=== PATIENT | male | born 1985 | race Caucasian/White ===

== ENCOUNTER 2020-05-28 16:29 | Emergency (ER) | payer MEDICARE, MEDICAID ==
[~2020-05-28] VITALS: Ht 185.4 cm; Wt 104.3 kg
[2020-05-28] MEDS ORDERED: XANAX 0.5 MG0.5 M1 PO (16:34)
[2020-05-28] MEDS ORDERED: LATUDA40 MG PO (16:35)
[2020-05-28 16:50] LABS: ABSOLUTE EOSINOPHILS 0.3 thou/uL (0.0-0.7); ABSOLUTE LYMPHOCYTES 2.3 thou/uL (0.8-5.3); ABSOLUTE MONOCYTES 0.5 thou/uL (0.0-1.2); ABSOLUTE NEUTROPHILS 5.9 thou/uL (1.6-8.1); BASOPHILS 0.5 %; EOSINOPHILS 2.9 %; HEMATOCRIT 38.9 % (42.0-52.0); HEMOGLOBIN 13.4 gm/dL (14.0-18.0); LYMPHOCYTES 25.4 %; MCH 32.5 pg (26.0-34.0); MCHC 34.4 g/dL (28.0-37.0); MCV 94.5 fL (80.0-100.0); MONOCYTES 5.8 %; MPV 8.2 fl. (7.2-11.1); NUCLEATED RBCS 0 /100WBC; PLATELET COUNT* 244 thou/uL (150-400); POLYS 65.4 %; RBC 4.12 mil/uL (4.50-6.00); RDW-CV 13.1 % (10.5-14.5)
[2020-05-28 17:02] LABS: APTT 25.1 Seconds (25.0-31.3); PROTIME 10.2 Seconds (9.20-11.50)
[2020-05-28 17:07] LABS: CALCIUM 8.6 mg/dL (8.5-10.1); CREATININE 0.9 mg/dL (0.6-1.3); POTASSIUM 4.2 mmol/L (3.5-5.1)
[2020-05-28 17:10] LABS: ALBUMIN 3.7 g/dL (3.4-5.0); MAGNESIUM 1.9 mg/dL (1.8-2.4); TOTAL BILIRUBIN 0.2 mg/dL (<0.1-1.0)
--- NOTE | 2020-05-28 17:37 | EKG ---
[place] [address] ELECTROCARDIOGRAM REPORT Name: HEAVEN CLAROS Room: [facility].#: [id number] Admission: Attend Phys: Discharge: Date of : 85 Date of Service: 05/28/20 1632 Report #: [id number] THIS REPORT FOR: //name// [facility] ED Test Date: 2020-05-28 Test Time: 16:32:09 Pat Name: HEAVEN CLAROS Department: Room: Gender: M Record Center Specialist: : 1985 Requested By: Elliot Scherer Order Number: [id number] MD: Manolo Singleton Measurements Intervals [place] Rate: 91 P: 44 SD: 185 QRS: 59 QRSD: 98 T: 33 QT: 346 QTc: 426 Interpretive Statements Sinus rhythm Probable left atrial enlargement RSR' in V1 or V2, right VCD or RVH No previous ECG available for comparison Electronically Signed On 05-28-2020 17:37:25 CAR [employer]TER by Manolo Singleton [email or web address] <ELECTRONICALLY SIGNED> By: Manolo Singleton MD, [facility] 05/28/20 1737 31 31 Manolo Singleton MD, FACC /EPI
[2020-05-28] MEDS ORDERED: NORCO 5-325 TA1 EAC2 PO (19:04)
[2020-05-28 19:15] VITALS: BP 110/70
--- NOTE | 2020-05-29 09:21 | EKG ---
[place] [address] ELECTROCARDIOGRAM REPORT Name: HEAVEN CLAROS Room: [facility]#: [id number] Admission: 05/28/20 Attend Phys: Discharge: 05/28/20 Date of : 85 Date of Service: 05/28/201856 Report #: [id number] THIS REPORT FOR: //name// [facility] ED Test Date: 2020-05-28 Test Time: 18:57:08 Pat Name: HEAVEN CLAROS Department: Room: Gender: Java Project Manager: [facility] : 1985 Requested By: Elliot Scherer Order Number: [id number] MD: Manolo Singleton Measurements Intervals [place] Rate: 73 P: 42 SD: 186 QRS: 27 QRSD: 97 T: 18 QT: 380 QTc: 419 Interpretive Statements Sinus rhythm RSR' in V1 or V2, right VCD or RVH Compared to ECG 05/28/2020 16:32:09 No significant changes Electronically Signed On 05-29-2020 9:21:12 [employer] by Manolo Singleton [email or web address] <ELECTRONICALLY SIGNED> By: Manolo Singleton MD, [facility] 05/29/20 0921 56 56 Manolo Singleton MD, [facility] /EPI
== END 2020-05-28 19:15 | disposition home or self-care (01) ==
LOC: M.ERS 16:29
PROVIDERS: Emergency Medicine Emergency Medical Services
DX: R07.89 Other chest pain (principal); F17.210 Nicotine dependence, cigarettes, uncomplicated; Z88.8 Allergy status to other drugs, medicaments and biological substances

== ENCOUNTER 2020-06-17 12:53 | Emergency (ER) | payer OTHER, MEDICAID ==
[~2020-06-17] VITALS: Ht 185.4 cm; Wt 108.9 kg
[~2020-06-17 12:53] MED LIST: LATUDA40 MG PO; NORCO 5-325 TA1 EAC2 PO; XANAX 0.5 MG0.5 M1 PO
[2020-06-17 14:26] LABS: ABSOLUTE EOSINOPHILS 0.2 thou/uL (0.0-0.7); ABSOLUTE LYMPHOCYTES 1.9 thou/uL (0.8-5.3); ABSOLUTE MONOCYTES 0.4 thou/uL (0.0-1.2); ABSOLUTE NEUTROPHILS 2.8 thou/uL (1.6-8.1); BASOPHILS 0.5 %; EOSINOPHILS 3.4 %; HEMATOCRIT 40.8 % (42.0-52.0); HEMOGLOBIN 13.9 gm/dL (14.0-18.0); MCH 31.8 pg (26.0-34.0); MCV 93.8 fL (80.0-100.0); MONOCYTES 7.4 %; MPV 8.2 fl. (7.2-11.1); NUCLEATED RBCS 0 /100WBC; PLATELET COUNT* 250 thou/uL (150-400); POLYS 52.7 %; RBC 4.35 mil/uL (4.50-6.00); RDW-CV 13.5 % (10.5-14.5); WBC 5.4 thou/uL (4.0-11.0)
[2020-06-17] MEDS ORDERED: MEDROLDOSEPACK PO (14:32)
[2020-06-17] MEDS ORDERED: FLEXERIL PO (14:32)
[2020-06-17] MEDS ORDERED: HYDROCODON-ACE1 EAC7 PO (14:32)
[2020-06-17 14:44] LABS: CALCIUM 8.8 mg/dL (8.5-10.1); POTASSIUM 4.3 mmol/L (3.5-5.1)
[2020-06-17 14:48] LABS: ALBUMIN 4.1 g/dL (3.4-5.0); TOTAL BILIRUBIN 0.2 mg/dL (<0.1-1.0); TOTAL PROTEIN 6.9 g/dL (6.4-8.2)
[2020-06-17 15:13] VITALS: BP 158/109
--- NOTE | 2020-06-18 13:12 | EKG ---
[place] [address] ELECTROCARDIOGRAM REPORT Name: HEAVEN CLAROS Room: [facility]#: [id number] Admission: 06/17/20 Attend Phys: Discharge: 06/17/20 Date of : 85 Date of Service: 06/17/20 1323 Report #: [id number] THIS REPORT FOR: //name// [facility] ED Test Date: 2020-06-17 Test Time: 13:23:38 Pat Name: HEAVEN CLAROS Department: Room: Gender: Digital Imager: [place]INDSA[place] : 1985 Requested By: Mirian Mcclure Order Number: [id number] MD: Shady Grider Measurements Intervals [place] Rate: 79 P: 42 MD: 189 QRS: 42 QRSD: 97 T: 38 QT: 371 QTc: 426 Interpretive Statements Sinus rhythm Left atrial enlargement, possible Baseline wander in lead(s) V3 Compared to ECG 05/28/2020 18:57:08 Atrial abnormality now present Electronically Signed On 06-18-2020 13:12:04 ZONING ENGINEER by Shady Grider [email or web address] <ELECTRONICALLY SIGNED> By: Shady Grider MD, FACC 06/18/20 1312 1323 1323 Shady Grider MD, FACC /EPI
== END 2020-06-17 15:14 | disposition home or self-care (01) ==
LOC: M.ERS 12:53
PROVIDERS: Physician Assistant
DX: G89.29 Other chronic pain (principal); M54.6 Pain in thoracic spine; M54.5 Low back pain

== ENCOUNTER 2020-06-22 13:58 | Emergency (ER) | payer OTHER, MEDICAID ==
[~2020-06-22] VITALS: Ht 185.4 cm; Wt 108.9 kg
[~2020-06-22 13:58] MED LIST changes: +FLEXERIL PO; +HYDROCODON-ACE1 EAC7 PO; +MEDROLDOSEPACK PO
[2020-06-22] MEDS ORDERED: PRINIVIL10 MG PO (14:18)
[2020-06-22 15:34] VITALS: BP 126/79
== END 2020-06-22 15:35 | disposition home or self-care (01) ==
LOC: M.ERS 13:58
DX: M54.5 Low back pain (principal); F41.9 Anxiety disorder, unspecified; F17.210 Nicotine dependence, cigarettes, uncomplicated; Z79.899 Other long term (current) drug therapy; Z88.8 Allergy status to other drugs, medicaments and biological substances

== ENCOUNTER 2020-07-10 14:07 | Emergency (ER) | payer OTHER, MEDICAID ==
[~2020-07-10] VITALS: Ht 185.4 cm; Wt 113.4 kg
[~2020-07-10 14:07] MED LIST changes: +PRINIVIL10 MG PO; -XANAX 0.5 MG0.5 M1 PO; +XANAX XR2 MG PO
[2020-07-10 14:10] VITALS: BP 155/84
[2020-07-10] MEDS ORDERED: MINIPRESS5 MG PO (14:17)
[2020-07-10] MEDS ORDERED: XANAX1 MG PO (14:32)
== END 2020-07-10 14:44 | disposition home or self-care (01) ==
LOC: M.ERS 14:07
DX: F41.9 Anxiety disorder, unspecified (principal); F17.210 Nicotine dependence, cigarettes, uncomplicated; Z76.0 Encounter for issue of repeat prescription; Z79.899 Other long term (current) drug therapy; Z88.8 Allergy status to other drugs, medicaments and biological substances